=== PATIENT | female | born 1945 | race Caucasian/White ===

== ENCOUNTER 2017-04-07 06:35 | Emergency (ER) | payer SELFPAY ==
[2017-04-07 07:09] VITALS: TEMP 98.6
--- NOTE | 2017-04-07 07:41 | EDPHY ---
H & P Time Seen by Provider: 04/07/17 07:40 HPI/ROS: Chief complaint. Anxiety HPI. 71-year-old female presents emergency department with complaint of anxiety for 6 months. It has gradually been escalating. She does have recent stressors of recently retiring and being a single mom. She feels very tense in her neck and jaw and queasy abdomen with decreased appetite. She has been trying relaxation techniques. She tried Valium which did not help. This list is an allergy but it just did not help. She says that she is beginning to have thoughts of jumping out a window or in front of a car but does not have a specific plan for this. No significant chest discomfort or trouble breathing. No abdominal pain other than queasy. She recently was found to have a low sodium and has been eating extra salt and drinking less water. ROS Constitutional. Anxiety Eyes. no problems with vision ENT. no sore throat, no nasal drainage Cardiovascular. no chest pain Respiratory. no shortness of breath, no cough Abdominal. Queasy abdomen without vomiting or diarrhea . no problems urinating MS. tends to upper back and neck jaw Skin. no rash Lymph. no swollen glands Neuro. no headache, no dizziness, no difficulty walking or with speech Past Medical/Surgical History: Tonsillectomy Social History: Single, nonsmoker, no alcohol Smoking Status: Former smoker Physical Exam: General Appearance: Alert pleasant but anxious well-developed female moderate distress vital signs significant for blood pressure 188/100 Eyes: Pupils equal and round no pallor or injection. ENT, Mouth: Mucous membranes are moist. Respiratory: There are no retractions, lungs are clear to auscultation. Cardiovascular: Regular rate and rhythm. Gastrointestinal: Abdomen is soft and nontender, no masses, bowel sounds normal. Neurological: Awake and alert, sensory and motor exams grossly normal. Skin: Warm and dry, no rashes. Musculoskeletal: Neck is supple nontender. Extremities symmetrical, full range of motion. Psychiatric: Patient is oriented X 3, there is anxiety and tension. Constitutional: Initial Vital Signs Temperature (C) 37 C 04/07/17 06:42 Heart Rate 77 04/07/17 06:42 Respiratory Rate 18 04/07/17 06:42 Blood Pressure 188/100 H 04/07/17 06:42 O2 Sat (%) 97 04/07/17 06:42 O2 Delivery Mode Room Air Allergies/Adverse Reactions: diazepam [From Valium] Adverse Reaction (Verified 04/07/17 06:49) onion Adverse Reaction (Verified 04/07/17 06:49) unk abx Allergy (Uncoded 04/07/17 06:49) Home Medications: Medication Instructions Recorded IBUPROFEN 04/07/17 LORazepam [Ativan] 1 mg PO Q6-8PRN PRN #14 tab 04/07/17 Medical Decision Making - Diagnostics EKG Interpretation: EKG interpreted by me shows normal sinus rhythm with normal interval and axis. QRS is normal there is no significant ST elevation or depression. No arrhythmia. Rate is 69 Procedures: IV normal saline. Ativan by mouth ED Course/Re-evaluation: Patient has been evaluated by mental health. They feel She is appropriate for outpatient therapy 10:15 a.m. I discussed laboratory EKG evaluation with the patient. We discussed treatment plan for mental health anxiety and criteria for return importance of follow-up and further evaluation. She expresses understanding and agreement Differential Diagnosis: This appears to be anxiety. She has recent diagnosis of hyponatremia and I considered electrolyte abnormalities. Because of her muscle tightness in the upper back and neck I considered acute coronary syndrome though her cardiac workup is normal. We considered suicide ideation as well. She has had a mental health evaluation - Data Points Laboratory Results: Laboratory Results 04/07/17 08:00 04/07/17 08:00 04/07/17 04/07/17 04/07/17 08:00 08:00 07:40 WBC 7.14 10^3/uL 10^3/uL (3.80-9.50) RBC 4.90 10^6/uL 10^6/uL (4.18-5.33) Hgb 15.3 g/dL g/dL (12.6-16.3) Hct 44.1 % % (38.0-47.0) MCV 90.0 fL fL (81.5-99.8) MCH 31.2 pg pg (27.9-34.1) MCHC 34.7 g/dL g/dL (32.4-36.7) RDW 12.8 % % (11.5-15.2) Plt Count 281 10^3/uL 10^3/uL (150-400) MPV 9.8 fL fL (8.7-11.7) Neut % (Auto) 68.5 % % (39.3-74.2) Lymph % (Auto) 20.7 % % (15.0-45.0) [place] % (Auto) 9.0 % % (4.5-13.0) Eos % (Auto) 0.8 % % (0.6-7.6) Baso % (Auto) 0.6 % % (0.3-1.7) Nucleat RBC Rel Count 0.0 % % (0.0-0.2) Absolute Neuts (auto) 4.89 10^3/uL 10^3/uL (1.70-6.50) Absolute Lymphs (auto) 1.48 10^3/uL 10^3/uL (1.00-3.00) Absolute Monos (auto) 0.64 10^3/uL 10^3/uL (0.30-0.80) Absolute Eos (auto) 0.06 10^3/uL 10^3/uL (0.03-0.40) Absolute Basos (auto) 0.04 10^3/uL 10^3/uL (0.02-0.10) Absolute Nucleated RBC 0.00 10^3/uL 10^3/uL (0-0.01) Immature Gran % 0.4 % % (0.0-1.1) Immature Gran # 0.03 10^3/uL 10^3/uL (0.00-0.10) Sodium 139 mEq/L mEq/L (134-144) Potassium 3.4 mEq/L L mEq/L (3.5-5.2) Chloride 99 mEq/L mEq/L (97-110) Carbon Dioxide 26 mEq/l mEq/l (22-31) Anion Gap 14 mEq/L mEq/L (8-16) BUN 5 mg/dL L mg/dL (7-23) Creatinine 0.7 mg/dL mg/dL (0.6-1.0) Estimated GFR > 60 Glucose 91 mg/dL mg/dL (70-100) Calcium 9.5 mg/dL mg/dL (8.5-10.4) Troponin I < 0.012 ng/mL ng/mL (0.000-0.034) Lipase 98 IU/L IU/L (23-300) Urine Opiates Screen NEGATIVE (NEGATIVE) Urine Barbiturates NEGATIVE (NEGATIVE) Ur Phencyclidine Scrn NEGATIVE (NEGATIVE) Ur Amphetamine Screen NEGATIVE (NEGATIVE) U Benzodiazepines Scrn NEGATIVE (NEGATIVE) Urine Cocaine Screen NEGATIVE (NEGATIVE) U Marijuana (THC) Screen NEGATIVE (NEGATIVE) Ethyl Alcohol < 10 mg/dL mg/dL (0-10) Medications Given: Discontinued Medications Lorazepam (Ativan) 1 mg PO EDNOW ONE Stop: 04/07/17 07:59 Last Admin: 04/07/17 08:02 Dose: 1 mg Departure - Departure Disposition: Home, Routine, Self-Care Clinical Impression: Anxiety Condition: Good Instructions: Anxiety (ED) Additional Instructions: Practice relaxation techniques. Ativan as needed for anxiety. Return for worsening symptoms or increased thoughts of harming yourself. Keep your follow- up appointment with your regular physician as recommended by mental health Referrals: CHRISTOPHER RICH [Other] - As per Instructions [facility] [Outside] - As per Instructions Prescriptions: LORazepam [Ativan] 1 mg PO Q6-8PRN PRN #14 tab PRN Reason: Anxiety
[2017-04-07] MEDS ORDERED: LORazepam 1 MG TAB PO ONE (07:58)
--- NOTE | 2017-04-07 08:08 | CPEKG ---
Heart Rate: 69 RR Interval: 870 P-R Interval: 140 QRSD Interval: 92 QT Interval: 412 QTC Interval: 442 P [place]: 78 QRS [place]: 52 T Wave [place]: 63 EKG Severity - ABNORMAL ECG - EKG Impression: SINUS RHYTHM EKG Impression: LEFT ATRIAL ABNORMALITY EKG Impression: BORDERLINE INFERIOR Q WAVES EKG Impression: PROBABLE ANTEROLATERAL INFARCT, OLD Electronically Signed By: Geo Grayson 07-Apr-2017 08:45:24
[2017-04-07 08:27] VITALS: RESP 16
[2017-04-07 08:33] LABS: % IMMATURE GRANULYOCYTES 0.4 % (0.0-1.1); ABSOLUTE IMMATURE GRANULOCYTES 0.03 10^3/uL (0.00-0.10); ADD DIFF? NO; ADD MORPH? NO; ADD SCAN? NO; ATYPICAL LYMPHOCYTE FLAG 0 (0-99); FRAGMENT RBC FLAG 0 (0-99); HEMATOCRIT 44.1 % (38.0-47.0); HEMOGLOBIN 15.3 g/dL (12.6-16.3); LEFT SHIFT FLG 0 (0-99); LIPEMIA HEMOLYSIS FLAG 90 (0-99); MEAN CELL HEMOGLOBIN 31.2 pg (27.9-34.1); MEAN CELL HEMOGLOBIN CONCENTR. 34.7 g/dL (32.4-36.7); MEAN PLATELET VOLUME 9.8 fL (8.7-11.7); PLATELET CLUMPS FLAG 20 (0-99); PLATELET COUNT 281 10^3/uL (150-400); RED CELL DISTRIBUTION WIDTH 12.8 % (11.5-15.2)
[2017-04-07 08:43] LABS: ANION GAP 14 mEq/L (8-16); CALCIUM 9.5 mg/dL (8.5-10.4); CARBON DIOXIDE 26 mEq/l (22-31); CHLORIDE 99 mEq/L (97-110); CREATININE 0.7 mg/dL (0.6-1.0); ETHANOL SERUM < 10 mg/dL (0-10); GLOMERULAR FILTRATION RATE > 60; GLUCOSE 91 mg/dL (70-100); POTASSIUM 3.4 mEq/L (3.5-5.2); SODIUM 139 mEq/L (134-144)
[2017-04-07 08:54] LABS: TROPONIN I < 0.012 ng/mL (0.000-0.034)
[2017-04-07 10:25] VITALS: BP 139/83; PULSE 73; O2SAT 96
== END 2017-04-07 10:36 | disposition home or self-care (01) ==
LOC: EDUNIT# → EDBD
DX: F41.9 Anxiety disorder, unspecified (principal); Z87.891 Personal history of nicotine dependence
CPT/HCPCS: 80305; G0480

== ENCOUNTER 2017-04-29 11:06 | Emergency (ER) | payer SELFPAY ==
[2017-04-29 11:19] VITALS: TEMP 98.2
[2017-04-29 12:38] LABS: % IMMATURE GRANULYOCYTES 0.5 % (0.0-1.1); ABSOLUTE IMMATURE GRANULOCYTES 0.05 10^3/uL (0.00-0.10); ADD DIFF? NO; ADD MORPH? NO; ADD SCAN? NO; ATYPICAL LYMPHOCYTE FLAG 0 (0-99); FRAGMENT RBC FLAG 0 (0-99); HEMATOCRIT 46.3 % (38.0-47.0); HEMOGLOBIN 16.2 g/dL (12.6-16.3); LEFT SHIFT FLG 0 (0-99); LIPEMIA HEMOLYSIS FLAG 90 (0-99); MEAN CELL HEMOGLOBIN 31.3 pg (27.9-34.1); MEAN CELL VOLUME 89.4 fL (81.5-99.8); MEAN PLATELET VOLUME 10.2 fL (8.7-11.7); PLATELET CLUMPS FLAG 0 (0-99); PLATELET COUNT 335 10^3/uL (150-400); RED BLOOD CELL COUNT 5.18 10^6/uL (4.18-5.33); RED CELL DISTRIBUTION WIDTH 13.3 % (11.5-15.2)
[2017-04-29 12:46] LABS: ANION GAP 16 mEq/L (8-16); CALCIUM 9.8 mg/dL (8.5-10.4); CARBON DIOXIDE 23 mEq/l (22-31); CHLORIDE 94 mEq/L (97-110); CREATININE 0.7 mg/dL (0.6-1.0); GLOMERULAR FILTRATION RATE > 60; GLUCOSE 95 mg/dL (70-100); POTASSIUM 3.9 mEq/L (3.5-5.2); SODIUM 133 mEq/L (134-144)
[2017-04-29] MEDS ORDERED: IOPAMIDOL (ISOVUE-300) 100 ML BTL ONE (13:41)
--- NOTE | 2017-04-29 14:36 | EDPHY ---
H & P Smoking Status: Former smoker Time Seen by Provider: 04/29/17 11:32 HPI/ROS: CHIEF COMPLAINT: Abdominal pain, headache HISTORY OF PRESENT ILLNESS: 71-year-old female presents to the emergency department with history of anxiety. She has tried numerous medications for this. She was here in the emergency department recently and was in a crisis stabilization unit for 5 days. At that time they had started her on gabapentin 600 mg three times daily. Since starting that medication, she has felt very dizzy, she complains of headaches palm she feels nauseous. She has also had associated abdominal pain which she feels has been increasingly worse. She stopped the gabapentin 3 days ago thinking that her symptoms were as a result of adverse reaction. She denies chest pain or difficulty breathing. No vomiting. No diarrhea. Had a normal bowel movement yesterday. No reported trauma. The pain apparently became so severe today she asked her friend who is at bedside "should I signed a DNR" in reference to how bad the pain was. REVIEW OF SYSTEMS: Constitutional: No fever, no chills. Eyes: No double or blurry vision. ENT: No sore throat. Respiratory: No cough, no shortness of breath. Cardiac: No chest pain. Gastrointestinal: Abdominal pain as above. No vomiting or diarrhea. Genitourinary: No dysuria. Musculoskeletal: No neck or back pain. Skin: No rashes. Neurological: headache, dizziness. (Camryn Alonso) Past Medical/Surgical History: Tonsillectomy (Camryn Alonso) Social History: Single and lives in [place] (Camryn Alonso) Physical Exam: General Appearance: Alert, no distress. Eyes: Pupils equal and round. Extraocular motions are all intact. ENT: Mouth: Mucous membranes moist. Respiratory: No wheezing, rhonchi, or rales, lungs are clear to auscultation. Cardiovascular: Regular rate and rhythm. Gastrointestinal: Abdomen is soft. Tenderness with palpation especially in the left lower quadrant. There is no rebound, guarding or masses noted. No CVA tenderness bilaterally. Neurological: Alert and oriented x 3, cranial nerves II through XII grossly intact Skin: Warm and dry, no rashes. Musculoskeletal: Nontender to palpate along the cervical, thoracic or lumbar spine. Neck is supple. Extremities: Full range of motion and no peripheral edema. Psychiatric: Patient is oriented X 3, there is no agitation. (Camryn Alonso) Constitutional: Initial Vital Signs Temperature (C) 36.8 C 04/29/17 11:17 Heart Rate 75 04/29/17 11:17 Respiratory Rate 17 04/29/17 11:17 Blood Pressure 146/92 H 04/29/17 11:17 O2 Sat (%) 98 04/29/17 11:17 O2 Delivery Mode Room Air Allergies/Adverse Reactions: gabapentin Allergy (Verified 04/29/17 11:15) diazepam [From Valium] Adverse Reaction (Verified 04/29/17 11:15) onion Adverse Reaction (Verified 04/29/17 11:15) unk abx Allergy (Uncoded 04/07/17 06:49) Home Medications: Medication Instructions Recorded KLONOPIN 04/29/17 LORazepam [Ativan] 0.5 mg PO Q6-8PRN PRN #10 tab 04/29/17 Medical Decision Making - Diagnostics Imaging: Discussed imaging studies w/ call center assistant Radiologist ED Course/Re-evaluation: The patient feels that her symptoms are likely related to her gabapentin. She stopped this on her own 3 days ago. She however does have pain with palpation in her left lower quadrant. I explained to the patient I was concerned about possible diverticulitis. I discussed the pros and cons of CT imaging of her abdomen and pelvis including radiation exposure the patient agreed. Patient has also had ongoing headaches. She feels dizzy. She was concerned about a "brain tumor". She denies chest pain or difficulty breathing. Denies abdominal pain. Patient feels very strongly that her symptoms are likely related to gabapentin. She still has stop this medication now nearly 3 days ago. She has a normal neurologic examination. Patient does have a history of anxiety. She is requesting prescription for anxiety. She was given Ativan 1 mg tabs to use 0.5 mg up to three times daily as needed for symptoms of anxiety. She understands that this is a rescue medication that should be used sparingly. She was instructed to return if she had any change in symptoms or if she felt worse in any way. (Camryn Alonso) Differential Diagnosis: Including but not limited to diverticulitis, bowel obstruction, carcinoma, urinary tract infection, pyelonephritis, kidney stone, constipation, medication reaction Headache including but not limited to subarachnoid hemorrhage, migraine headache , tension headache and infectious causes such as meningitis, pharyngitis and sinusitis. (Camryn Alonso) Other Provider: The patient was evaluated and managed by the Physician Naval Architect/ Nurse Practitioner. My co-signature indicates that I have reviewed this chart and I agree with the findings and plan of care as documented. I am the secondary supervising physician. (Amelia Renteria) - Data Points Laboratory Results: Laboratory Results 04/29/17 11:30 04/29/17 11:30 Departure - Departure Disposition: Home, Routine, Self-Care Clinical Impression: Abdominal pain, Headache, Adverse reaction to drug Condition: Good Instructions: Acute Nausea and Vomiting (ED), Acute Abdominal Pain (ED), Adverse Drug Reaction (ED), General Headache (ED) Additional Instructions: Ativan as needed for symptoms or anxiety and symptoms of abdominal cramping. Return if you have any change in symptoms or if you feel worse in any way. Referrals: VIAN[facility] MEADE [Other] - 1-2 days without fail Prescriptions: LORazepam [Ativan] 0.5 mg PO Q6-8PRN PRN #10 tab PRN Reason: Anxiety
[2017-04-29 14:59] VITALS: BP 180/92; PULSE 88; RESP 18; O2SAT 97
== END 2017-04-29 15:15 | disposition home or self-care (01) ==
DX: R51 Headache (principal); R10.32 Left lower quadrant pain; T42.6X5A Adverse effect of other antiepileptic and sedative-hypnotic drugs, initial encounter
CPT/HCPCS: Q9967

== ENCOUNTER 2017-08-16 14:07 | Emergency (ER) | payer OTHER ==
--- NOTE | 2017-08-16 16:14 | EDPHY ---
H & P Stated Complaint: high BP Time Seen by Provider: 08/16/17 15:54 HPI/ROS: CHIEF COMPLAINT: High blood pressure, anxiety HISTORY OF PRESENT ILLNESS: Patient is a 71-year-old female with a history of high blood pressure and anxiety. She takes lisinopril and lorazepam p.r.n. an her primary at [facility] to Dr. Branch also recently started her on citalopram. She noticed today that her blood pressure was elevated in the highest reading she saw it was 189/105. This made her feel more anxious. She took an extra dose of lisinopril and her blood pressure did improve slightly. She denies headache or lightheadedness or palpitations. She denies shortness of breath. She does however state that she has had some pressure in her chest and left shoulder that she attributes to anxiety and stress. They have been present for about a week. There is some slight improvement with movement stretching. No diaphoresis. She states that she had a stress test done [address] [facility] that was negative. No recent cough or infection. REVIEW OF SYSTEMS: Constitutional: denies: chills, fever, recent illness, recent injury EENTM: denies: blurred vision, double vision, nose congestion Respiratory: denies: cough, shortness of breath Cardiac: See HPI denies: irregular heart rate, lightheadedness, palpitations Gastrointestinal/Abdominal: denies: abdominal pain, diarrhea, nausea, vomiting, blood streaked stools Genitourinary: denies: dysuria, frequency, hematuria, pain Musculoskeletal: denies: joint pain, muscle pain Skin: denies: lesions, rash, jaundice, bruising Neurological: denies: headache, numbness, paresthesia, tingling, dizziness, weakness Hematologic/Lymphatic: denies: blood clots, easy bleeding, easy bruising Immunologic/allergic: denies: HIV/AIDS, transplant EXAM: GENERAL: Well-appearing, well-nourished and in no acute distress. HEAD: Atraumatic, normocephalic. EYES: Pupils equal round and reactive to light, extraocular movements intact, sclera anicteric, conjunctiva are normal. ENT: TMs normal, nares patent, oropharynx clear without exudates. Moist mucous membranes. NECK: Normal range of motion, supple without lymphadenopathy or JVD. LUNGS: Breath sounds clear to auscultation bilaterally and equal. No wheezes rales or rhonchi. HEART: Regular rate and rhythm without murmurs, rubs or gallops. ABDOMEN: Soft, nontender, normoactive bowel sounds. No guarding, no rebound. No masses appreciated. BACK: No CVA tenderness, no spinal tenderness, step-offs or deformities EXTREMITIES: Normal range of motion, no pitting or edema. No clubbing or cyanosis. NEUROLOGICAL: Cranial nerves II through XII grossly intact. Normal speech, normal gait. 5/5 strength, normal movement in all extremities, normal sensation PSYCH: Normal mood, normal affect. SKIN: Warm, dry, normal turgor, no visible rashes or lesions. Source: Patient Exam Limitations: No limitations - Personal History Current Tetanus/Diphtheria Vaccine: Unsure Current Tetanus Diphtheria and Acellular Pertussis (TDAP): Unsure - Medical/Surgical History Hx Asthma: No Hx Chronic Respiratory Disease: No Hx Diabetes: No Hx Cardiac Disease: No Hx Renal Disease: No Hx Cirrhosis: No Hx Alcoholism: No Hx HIV/AIDS: No Hx Splenectomy or Spleen Trauma: No Other PMH: tonsillectomy. HTN. anxiety - Family History Significant Family History: No pertinent family hx - Social History Smoking Status: Former smoker Alcohol Use: Sober Constitutional: Initial Vital Signs Temperature (C) 37 C 08/16/17 14:11 Heart Rate 81 08/16/17 14:11 Respiratory Rate 20 08/16/17 14:11 Blood Pressure 189/73 H 08/16/17 14:11 O2 Sat (%) 98 08/16/17 14:11 O2 Delivery Mode Room Air Allergies/Adverse Reactions: gabapentin Allergy (Verified 08/16/17 14:09) diazepam [From Valium] Adverse Reaction (Verified 08/16/17 14:09) onion Adverse Reaction (Verified 08/16/17 14:09) antibiotics Allergy (Uncoded 08/16/17 14:10) unk abx Allergy (Uncoded 04/07/17 06:49) Home Medications: Medication Instructions Recorded Citalopram 08/16/17 LORAZEPAM 08/16/17 Lisinopril 08/16/17 Medical Decision Making - Diagnostics EKG Interpretation: An EKG obtained and was read and documented in trace view. Please see trace view for full reading and report. LVH with repolarization abnormality, T-wave inversions in V1 primarily unchanged from previous Imaging Results: Imaging Impressions Chest X-Ray 08/16/17 16:12 Impression: 1. Suspect early right upper lobe pneumonia. 2. Mild midthoracic compression deformity, probably osteoporotic. Consider DEXA bone scan evaluation follow up. 3. Atherosclerotic aorta. 4. Recommend follow-up chest x-ray until clear. Findings and recommendations discussed with Emergency Department physician, Wild Okeefe M.D., at 1647 hours, on August 16, 2017. Final report concurs with initial preliminary interpretation. Imaging: Discussed imaging studies w/ call center dispatcher Radiologist ED Course/Re-evaluation: 5:20 p.m. we discussed the x-ray and lab results which are reassuring. Her x- ray was read as possible early right upper lobe pneumonia. The patient denies having any pneumonia type symptoms. She has not had a fever or productive cough shortness of breath or diaphoresis. No pleurisy. She does have a occasional slight dry cough and suspects that it may be from her BRIAN-inhibitor. She will follow up with her primary doctor on Friday to discuss her blood pressure medications and possibly changing. I advised her to follow her blood pressure syncope trach. We also discussed her anxiety medications. Will also offered antibiotics but together decided to defer at this time because she is asymptomatic but states that she has a lot of side-effects from antibiotics. She is not febrile or hypoxic. She denies dyspnea. Differential Diagnosis: Partial list of the Differential diagnosis considered include but were not limited to; anxiety, hypertension and although unlikely based on the history and physical exam, I also considered acute coronary disease, pneumonia, PE, dissection. I discussed these differential diagnoses and the plan with the patient as well as the usual and expected course. The patient understands that the diagnosis is provisional and that in medicine we are not always correct and that further workup is often warranted. Usual and customary warnings were given. All of the patient's questions were answered. The patient was instructed to return to the emergency department should the symptoms at all worsen or return, otherwise to followup with the physician as we discussed. - Data Points Laboratory Results: Laboratory Results 08/16/17 16:20 08/16/17 16:20 08/16/17 08/16/17 08/16/17 16:20 16:20 16:20 WBC 7.17 10^3/uL 10^3/uL (3.80-9.50) RBC 4.55 10^6/uL 10^6/uL (4.18-5.33) Hgb 14.2 g/dL g/dL (12.6-16.3) Hct 41.1 % % (38.0-47.0) MCV 90.3 fL fL (81.5-99.8) MCH 31.2 pg pg (27.9-34.1) MCHC 34.5 g/dL g/dL (32.4-36.7) RDW 13.3 % % (11.5-15.2) Plt Count 279 10^3/uL 10^3/uL (150-400) MPV 9.4 fL fL (8.7-11.7) Neut % (Auto) 68.2 % % (39.3-74.2) Lymph % (Auto) 20.4 % % (15.0-45.0) [place] % (Auto) 8.8 % % (4.5-13.0) Eos % (Auto) 1.4 % % (0.6-7.6) Baso % (Auto) 0.6 % % (0.3-1.7) Nucleat RBC Rel Count 0.0 % % (0.0-0.2) Absolute Neuts (auto) 4.90 10^3/uL 10^3/uL (1.70-6.50) Absolute Lymphs (auto) 1.46 10^3/uL 10^3/uL (1.00-3.00) Absolute Monos (auto) 0.63 10^3/uL 10^3/uL (0.30-0.80) Absolute Eos (auto) 0.10 10^3/uL 10^3/uL (0.03-0.40) Absolute Basos (auto) 0.04 10^3/uL 10^3/uL (0.02-0.10) Absolute Nucleated RBC 0.00 10^3/uL 10^3/uL (0-0.01) Immature Gran % 0.6 % % (0.0-1.1) Immature Gran # 0.04 10^3/uL 10^3/uL (0.00-0.10) D-Dimer < 0.27 ug/mLFEU ug/mLFEU (0.00-0.50) Sodium 131 mEq/L L mEq/L (135-145) Potassium 4.0 mEq/L mEq/L (3.5-5.2) Chloride 95 mEq/L L mEq/L (97-110) Carbon Dioxide 24 mEq/l mEq/l (22-31) Anion Gap 12 mEq/L mEq/L (8-16) BUN 7 mg/dL mg/dL (7-23) Creatinine 0.6 mg/dL mg/dL (0.6-1.0) Estimated GFR > 60 Glucose 87 mg/dL mg/dL (70-100) Calcium 9.5 mg/dL mg/dL (8.5-10.4) Troponin I < 0.012 ng/mL ng/mL (0.000-0.034) Departure - Departure Disposition: Home, Routine, Self-Care Clinical Impression: Anxiety about health Hypertension Qualifiers: Hypertension type: unspecified Qualified Code(s): I10 - Essential (primary) hypertension Condition: Fair Instructions: Hypertension (ED), Anxiety (ED) Additional Instructions: Talk with your doctor about her elevated blood pressure and possibly switching to other medications especially if it is causing a mild cough. Also be recheck tomorrow or Friday for possible early right upper lobe pneumonia. Referrals: [facility],. [Clinic] - 1-2 days without fail
--- NOTE | 2017-08-16 16:31 | CPEKG ---
Heart Rate: 71 RR Interval: 845 P-R Interval: 148 QRSD Interval: 92 QT Interval: 420 QTC Interval: 457 P [place]: 65 QRS [place]: 39 T Wave [place]: 55 EKG Severity - BORDERLINE ECG - EKG Impression: SINUS RHYTHM EKG Impression: PROBABLE LEFT ATRIAL ABNORMALITY EKG Impression: BORDERLINE INFERIOR Q WAVES EKG Impression: Similar to previous Electronically Signed By: Wild Okeefe 16-Aug-2017 16:34:41
[2017-08-16 16:36] LABS: PLATELET COUNT 279 10^3/uL (150-400)
[2017-08-16 17:02] VITALS: BP 149/82; PULSE 73; RESP 16; O2SAT 93
[2017-08-16 18:06] VITALS: TEMP 98.4
== END 2017-08-16 18:06 | disposition home or self-care (01) ==
DX: F41.9 Anxiety disorder, unspecified (principal); I10 Essential (primary) hypertension; Z87.891 Personal history of nicotine dependence

== ENCOUNTER 2017-09-11 07:28 | Day surgery (SDC) | payer OTHER ==
[2017-09-11] MEDS ORDERED: DIAZEPAM 5 MG TAB PO ONE (07:30)
[2017-09-11] MEDS ORDERED: NS 1,000 ML IV ONE (07:30)
[2017-09-11] MEDS ORDERED: diphenhydrAMINE 25 MG CAP PO ONE ×2 (07:30→07:43)
[2017-09-11] MEDS ORDERED: ASPIRIN EC 325 MG TAB PO ONE ×2 (07:30→07:44)
[2017-09-11] MEDS ORDERED: FAMOTIDINE 20 MG TAB PO ONE (07:30)
[2017-09-11] MEDS ORDERED: FAMOTIDINE 20 MG TAB ONE (07:44)
--- NOTE | 2017-09-11 07:59 | CPEKG ---
Heart Rate: 77 RR Interval: 779 P-R Interval: 136 QRSD Interval: 84 QT Interval: 392 QTC Interval: 444 P [place]: 64 QRS [place]: 44 T Wave [place]: 62 EKG Severity - NORMAL ECG - EKG Impression: SINUS RHYTHM Electronically Signed By: Wale Phan 11-Sep-2017 11:03:37
[2017-09-11 08:02] LABS: PLATELET COUNT 284 10^3/uL (150-400)
[2017-09-11 08:11] LABS: INR 0.94 (0.83-1.16); PROTIME(PATIENT) 12.8 SEC (12.0-15.0)
[2017-09-11] MEDS ORDERED: IOPAMIDOL (ISOVUE-370) 150 ML BTL IV ONE (08:40)
[2017-09-11] MEDS ORDERED: fentaNYL 100 MCG/2 ML INJ ONE (08:40)
[2017-09-11] MEDS ORDERED: LIDOCAINE 1% 300 MG/30 ML SDV ONE (08:40)
[2017-09-11] MEDS ORDERED: MIDAZOLAM 2 MG/2 ML VIAL ONE (08:40)
--- NOTE | 2017-09-11 08:57 | PDPROPOC ---
Sedation Plan of Care Sedation Plan of Care: vital signs stable, mental status noted, patient educated of risks, benefits, alternatives, patient can tolerate sedation ASA Classification: ASA 2 Planned drugs: fentanyl, midazolam Mallampati Score: Class 2 Mallampati Reference Image: Patient passed 3-3-2 rule?: Yes
--- NOTE | 2017-09-11 08:58 | PDHPUP ---
History & Physical Update H&P update statement: This history and physical update is based on an assessment of the patient which was completed after admission or registration (within 24 hours), but prior to the surgery/procedure. H&P update: H&P reviewed & patient examined, no change in patient's condition since H&P completed
--- NOTE | 2017-09-11 10:01 | PDDXCAT ---
Diagnostic Cath Note - . Date: 09/11/17 Irrigation Pump Installer: Faith Indication: Patient w angina/susp CAD, cannot be risk stratified by other means - Procedure Access: right groin Procedure: left heart catheterization, coronary angiography, left ventriculogram - Materials Left Heart Cath size: 6F Left Heart Cath materials: standard multipack (JL4, JR4, pigtail), JL3.5 - Findings-Left Heart Catheterization LM: Small diameter vessel with bifurcation into the LAD and LCX. No luminal irregularities were noted. LAD: Medium diameter vessel with one diagonal. Small degree (20%) of ostial disease was noted. No other luminal irregularities were noted. LCX: Medium diameter vessel - likely codominant given the branch vessel density noted. No luminal irregularities were noted. There were two principal obtuse marginals with a small OM between. Tortuosity is noted. RCA: Smallish vessel without appreciable luminal irregularities noted. EDP: 16 mm Hg LVEF: 65% Wall motion: normal Complications: none Estimated blood loss: <50ml Closure method: Angioseal Assessment: Patient is a 72 y/o female with complaints of chest pains. ETT with changes noted - equivocal - and a desire to have full assessment of CAD ( if present). Minor luminal irregularities to the ostium of the LAD (20%) without any other disease noted. Normal LVEF with normal wall motion. Plan: Continue aggressive medical management as at present. Work toward better anxiety control Intervention: none
[2017-09-11] MEDS ORDERED: ONDANSETRON 4 MG/2 ML VIAL IVP PRN (10:03)
[2017-09-11] MEDS ORDERED: OXYCODONE/APAP 5/325 TAB PO PRN (10:03)
[2017-09-11] MEDS ORDERED: ATROPINE SULFATE 1 MG/10 ML SYR IVP PRN (10:03)
[2017-09-11] MEDS ORDERED: NITROGLYCERIN 0.4 MG BTL SL PRN (10:03)
[2017-09-11] MEDS ORDERED: HYDROCODONE/APAP 5/325 TAB PO PRN (10:03)
== END 2017-09-11 13:51 | disposition home or self-care (01) ==
LOC: FCATH 07:28
PROVIDERS: ATTEND Internal Medicine Cardiovascular Disease
PROC: 4A023N7 Measurement of Cardiac Sampling and Pressure, Left Heart, Percutaneous Approach (ICD-10-PCS; principal; 2017-09-11)
PROC: B2111ZZ Fluoroscopy of Multiple Coronary Arteries using Low Osmolar Contrast (ICD-10-PCS; principal; 2017-09-11)
PROC: B2151ZZ Fluoroscopy of Left Heart using Low Osmolar Contrast (ICD-10-PCS; principal; 2017-09-11)
DX: R07.9 Chest pain, unspecified (principal); F41.9 Anxiety disorder, unspecified; F51.04 Psychophysiologic insomnia; K59.09 Other constipation
CPT/HCPCS: C1760; J1644; J2250; J3010; Q9967